=== PATIENT | female | born 1980 | race Caucasian/White ===

== ENCOUNTER 2016-09-01 01:35 | Emergency (ER) | payer OTHER ==
[2016-09-01 02:32] LABS: BASOPHIL 0.5 % (0-2); EOSINOPHIL 4.7 % (0-5); HCT 33.9 % (37.0-47.0); HGB 10.8 g/dl (12.5-16.0); LYMPHOCYTE 26.7 % (15-48); MCH 23.8 pg (25.0-31.0); MCHC 31.9 g/dL (32.0-36.0); MCV 74.8 fL (78.0-100.0); MONOCYTE 8.7 % (0-12); MPV 9.7 fL (6.0-9.5); NEUTROPHIL 59.4 % (41-80); PLT 432 K/uL (150-400); RBC 4.53 M/uL (4.20-5.40); WBC 10.1 K/uL (4.0-10.5)
[2016-09-01 02:50] LABS: ALBUMIN 3.4 g/dL (3.5-5.0); BILIRUBIN - TOTAL 0.2 mg/dL (0.1-1.0); CREATININE 0.7 mg/dL (0.5-1.0); POTASSIUM 4.5 mmol/L (3.5-5.1); TOTAL PROTEIN 6.4 g/dL (6.4-8.3)
== END 2016-09-01 04:40 | disposition home or self-care (01) ==
LOC: FER 01:35
PROVIDERS: Emergency Medicine
DX: R09.1 Pleurisy (principal); J98.11 Atelectasis; R05 Cough; F17.200 Nicotine dependence, unspecified, uncomplicated
CPT/HCPCS: 36415; 71010; 71275; 80053; 84484; 85025; 85379; 93005

== ENCOUNTER 2016-09-05 02:01 | Emergency (ER) | payer OTHER ==
[2016-09-05 02:50] LABS: HCT 34.3 % (37.0-47.0); HGB 10.8 g/dl (12.5-16.0); MCH 23.9 pg (25.0-31.0); MCHC 31.5 g/dL (32.0-36.0); MCV 75.9 fL (78.0-100.0); PLT 396 K/uL (150-400); RBC 4.52 M/uL (4.20-5.40); TOTAL CELL COUNT 100; WBC 9.8 K/uL (4.0-10.5)
[2016-09-05 02:51] LABS: ANISOCYTOSIS SLIGHT; EOSINOPHIL(M) 7 % (0-5); LYMPHOCYTE(M) 30 % (15-48); MONOCYTE(M) 8 % (0-12); NEUTROPHILS(M) 55 % (41-80); PLATELET ESTIMATE NORMAL; PLATELET MORPHOLOGY NORMAL; POIKILOCYTOSIS SLIGHT; POLYCHROMASIA SLIGHT
[2016-09-05 02:57] LABS: CREATININE 0.7 mg/dL (0.5-1.0); POTASSIUM 3.4 mmol/L (3.5-5.1)
== END 2016-09-05 03:20 | disposition home or self-care (01) ==
LOC: FER 02:01
PROVIDERS: Emergency Medicine
DX: R09.1 Pleurisy (principal); J90 Pleural effusion, not elsewhere classified; R91.1 Solitary pulmonary nodule; Z88.6 Allergy status to analgesic agent; F17.210 Nicotine dependence, cigarettes, uncomplicated
CPT/HCPCS: 36415; 71010; 80048; 84484; 93005; J2930

== ENCOUNTER 2020-07-31 09:08 | Emergency (ER) | payer SELFPAY ==
[~2020-07-31 09:08] MED LIST: TYLENOL #31 EACH PO
[2020-07-31] MEDS ORDERED: CLEOCIN300 MG PO (13:46)
[2020-07-31] MEDS ORDERED: ZOFRAN4 M1 PO (13:51)
== END 2020-07-31 14:17 | disposition home or self-care (01) ==
LOC: FER 09:08
DX: K05.219 Aggressive periodontitis, localized, unspecified severity (principal); F17.200 Nicotine dependence, unspecified, uncomplicated; Z88.6 Allergy status to analgesic agent
CPT/HCPCS: 87070; 87077